=== PATIENT | female | born 1955 | race Caucasian/White ===

== ENCOUNTER 2016-08-02 18:53 | Emergency (ER) | payer SELFPAY ==
[~2016-08-02] VITALS: Ht 157.5 cm; Wt 74.8 kg
[2016-08-02 19:25] VITALS: BP 155/99
[2016-08-02] MEDS ORDERED: Norco 5mg/325mg tab ORAL ONE (19:30)
[2016-08-02] MEDS ORDERED: Bacitracin Oint UD TOPIC ONE (19:30)
[2016-08-02] MEDS ORDERED: Lidocaine 1% Plain 30 ml INJ ONE (19:30)
[2016-08-02] MEDS ORDERED: TdaP Vaccine 0.5ml Syr IM ONE (19:30)
[2016-08-02] MEDS ORDERED: IBUPROFEN600 MG ORAL (20:59)
[2016-08-02] MEDS ORDERED: CEPHALEXIN500 MG ORAL (20:59)
[2016-08-02] MEDS ORDERED: TRAMADOL HCL50 MG ORAL (20:59)
[2016-08-02 21:20] VITALS: BP 143/96
--- NOTE | 2016-08-02 21:36 | Emergency Room Report ---
History of Present Illness General Chief Complaint: Laceration Source: Patient, Family Member - son Present Illness HPI The patient is a 61-year-old female presenting for a laceration to the Right hand. The patient states that her son closed a door onto the hand. She immediately noticed pain and bleeding. Pain is described as a 5/10 dull ache to the second and third fingers. Pain does not radiate. It is worse with touch and movement. She denies prior injury to the hand. Last tetanus shot is unknown. She denies any numbness or tingling or other symptoms Allergies: Coded Allergies: No Known Allergies (Unverified , 08/02/16) Patient History Past Medical History: see triage record Pertinent Family History: none Reviewed Nursing Documentation: PMH: Agreed, PSxH: Agreed Nursing Documentation-PMH Past Medical History: No History, Except For Hx Cardiac Problems: Yes - hyperthyroid Review of Systems All Other Systems: negative except mentioned in HPI Physical Exam Vital Signs Date Time Temp Pulse Resp B/P Pulse Ox O2 Delivery O2 Flow Rate FiO2 08/02/16 19:17 98.1 84 18 162/101 100 Room Air Sp02 EP Interpretation: reviewed, normal General Appearance: no apparent distress, alert, GCS 15, non-toxic Head: normocephalic, atraumatic Eyes: bilateral eye PERRL, bilateral eye normal inspection ENT: hearing grossly normal, normal pharynx, no angioedema, normal voice Neck: full range of motion, supple/symm/no masses Musculoskeletal: normal range of motion, swelling, tender - R 2nd and 3rd digits Neurologic: alert, oriented x3, responsive, motor strength/tone normal, sensory intact, speech normal Psychiatric: judgement/insight normal, memory normal, mood/affect normal, no suicidal/homicidal ideation Skin: normal turgor, laceration - 4 lacerations of the 2nd and 3rd digits ventral surface Lymphatic: no adenopathy Procedures Laceration/Wound Repair Laceration/Wound Repair : Consent: Verbal Wound Location: upper extremity Wound's Depth, Shape: superficial, into muscle Wound Length (cm): 10 Wound Explored: clean Irrigated w/ Saline (ccs): 300 Betadine Prep?: Yes Anesthesia: 1% Lidocaine - digital block of 2nd and 3rd digit Volume Anesthetic (ccs): 9 Wound Debrided: minimal Wound Repaired With: sutures Suture Size/Type: 4:0, proline Number of Sutures: 17 - total for 2 fingers Layer Closure?: No Sterile Dressing Applied?: Yes Splint Applied?: Yes - 2 metal figner splints Type of Splint Applied: metal finger Sling Applied?: No Patient Tolerated: Well Complications: None Medical Decision Making PA Attestation Dr. Wolf is my supervising physician. Patient management was discussed with my supervising physician Diagnostic Impression: Primary Impression: Laceration ER Course The patient is a 61-year-old female presenting for a laceration to the Right hand. Ddx considered include but not limited to fracture, tendon/ligament injury, avulsion, nerve damage Physical exam: Right hand has multiple lacerations of the second and third digits with swelling and ecchymosis. Total of approximately 10 cm of laceration. Full active range of motion of fingers. Sensation intact to light touch Minimal active bleeding X-ray of the hand is unremarkable for fracture or dislocation The patient was given [place] for pain The wound was irrigated with normal saline and cleaned with betadine. A 27g needle was used to administer 9mL of lidocaine w.o epi for digital block of 2nd and 3rd digits. 17 total sutures were placed with 4-0 prolene. The wound was well approximated and the patient tolerated the procedure well. The wound was then cleaned and bacitracin was applied. 2metal finger splints were applied The patient will continue to keep the wound clean and dry and will followup with PMD. Suture instructions provided. ER precautions are given Due to the large lacerations, patient will be placed on antibiotics Other X-Ray Diagnostic Results Other X-Ray Diagnostic Results : X-Ray Ordered: R hand Date: Aug 02, 2016 EP Interpretation: Yes Findings: no fractures, no dislocation, no soft tissue swelling Number of Views: 3 PA Scribe Text I am acting as scribe for my supervising physician. My supervising physician's interpretation of the R hand xrays are there are no fractures, dislocations or soft tissue swelling. Last Vital Signs Date Time Temp Pulse Resp B/P Pulse Ox O2 Delivery O2 Flow Rate FiO2 08/02/16 21:20 98.2 86 16 143/96 100 Room Air Status: improved Disposition: HOME, SELF-CARE Condition: Improved Scripts Cephalexin* (KEFLEX*) 500 Mg Capsule 500 MG ORAL EVERY 6 HOURS, #28 CAP Prov: VICKI POWELL P.A. 08/02/16 Tramadol Hcl* (ULTRAM*) 50 Mg Tablet 50 MG ORAL Q6H Y for For Pain, #10 TAB 0 Refills Prov: VICKI POWELL 08/02/16 Ibuprofen* (MOTRIN*) 600 Mg Tablet 600 MG ORAL Q8H Y for For Pain, #30 TAB 0 Refills Prov: VICKI POWELL 08/02/16 Patient Instructions: Laceration Care, Adult Additional Instructions: I discussed my findings with the patient. All questions and concerns have been answered. Treatment and medication compliance have been addressed. I advised the patient that they need to follow up with PMD in 7 days for wound check and suture removal. If you are unable to see PMD, return to the ED in 7 days. Return to ED if pain remains or worsens, you notice discharge from the wound, the wound continues to bleed, the suture/s fall out, you notice a fever or chills, or for any reason. Patient is advised to keep the wound clean and apply an antibacterial ointment. Patient verbalized understanding of discharge instructions. VICKI POWELL Aug 02, 2016 21:36
--- NOTE | 2016-08-03 09:39 | Diagnostic Imaging Report ---
Indication: PAIN Technique: XRAY HAND MIN 3V RIGHT Comparison: None. Findings: The osseous structures are intact. There is no fracture or destruction. The visualized joints are normal. There is soft tissue laceration in the third finger. Impression: Soft tissue laceration third finger. No bony abnormality.
== END 2016-08-02 21:20 | disposition home or self-care (01) ==
LOC: EMR 19:59
DX: S61.411A Laceration without foreign body of right hand, initial encounter (principal); Z23 Encounter for immunization; W22.8XXA Striking against or struck by other objects, initial encounter; Y93.9 Activity, unspecified; Y92.9 Unspecified place or not applicable; E05.90 Thyrotoxicosis, unspecified without thyrotoxic crisis or storm
CPT/HCPCS: 12044; 29130; 73130; 90471; 90715; 99284; J2001